=== PATIENT | female | born 1980 | race African-American/Black ===

== ENCOUNTER 2019-01-13 14:40 | Emergency (ER) | payer OTHER ==
[~2019-01-13] VITALS: Ht 160 cm; Wt 100.0 kg
[2019-01-13] MEDS ORDERED: IBUPROFEN 600MG TABLET PO ONE (16:45)
[2019-01-13 17:28] VITALS: BP 129/84
== END 2019-01-13 17:53 | disposition home or self-care (01) ==
LOC: ER 14:40
DX: S80.02XA Contusion of left knee, initial encounter (principal); Z98.890 Other specified postprocedural states; W01.0XXA Fall on same level from slipping, tripping and stumbling without subsequent striking against object, initial encounter; Y93.89 Activity, other specified; Y92.018 Other place in single-family (private) house as the place of occurrence of the external cause
CPT/HCPCS: 73560; 81025; 99283